=== PATIENT | female | born 1990 | race Two or more races ===

== ENCOUNTER 2020-12-09 18:15 | Emergency (ER) | payer OTHER ==
[~2020-12-09] VITALS: Ht 172.7 cm; Wt 74.8 kg
== END 2020-12-09 21:02 | disposition home or self-care (01) ==
LOC: ER 18:15
DX: S92.522A Displaced fracture of middle phalanx of left lesser toe(s), initial encounter for closed fracture (principal); W22.8XXA Striking against or struck by other objects, initial encounter; Y93.89 Activity, other specified; Y92.69 Other specified industrial and construction area as the place of occurrence of the external cause; Y99.8 Other external cause status